=== PATIENT | female | born 1945 | race Caucasian/White ===

== ENCOUNTER → 2018-03-10 | Outpatient (CLI) | payer MEDICARE, OTHER ==
[~2018-03-10] MED LIST: ACET500T71 PO; ACYC-113 PO; ASCO500T8 PO; CHOL100012 PO; CHOL10002 PO; DOCU-180 PO; GARL1CAP3 PO; HYDR12.517 PO; IBUP-1623 PO; LISI-167 PO; MONT10TA6 PO; MULT-91 PO; MULT1TAB60 PO
[2018-03-10 10:50] LABS: BASOPHILS # (AUTO) 0.02 x10^3/uL (0-0.1); BASOPHILS % (AUTO) 0 % (0-1); EOSINOPHILS # (AUTO) 0.09 x10^3/uL (0-0.4); EOSINOPHILS % (AUTO) 2 % (1-7); LYMPHOCYTES # (AUTO) 1.25 x10^3/uL (1-3.4); LYMPHOCYTES % (AUTO) 21 % (22-44); MD NO; MEAN CORPUSCULAR HEMOGLOBIN 31.2 pg (27.0-34.8); MEAN CORPUSCULAR HGB CONC 33.8 g/dL (32.4-35.8); MEAN CORPUSCULAR VOLUME 92.4 fL (80-100); MEAN PLATELET VOLUME 8.2 fL (7.4-10.4); MONOCYTES % (AUTO) 9 % (2-9); NEUTROPHILS # (AUTO) 4.03 x10^3/uL (1.8-6.8); NEUTROPHILS % (AUTO) 69 % (42-75); PLATELET COUNT 257 x10^3/uL (130-400); RED BLOOD COUNT 4.33 x10^6/uL (3.82-5.3); RED CELL DISTRIBUTION WIDTH 14.1 % (9.6-15.2)
[2018-03-10 11:01] LABS: ALANINE AMINOTRANSFERASE 18 U/L (12-78); ALBUMIN 3.9 g/dL (3.4-5.0); ANION GAP 6 mmol/L (5-15); CALCIUM 9.4 mg/dL (8.5-10.1); CHLORIDE 107 mmol/L (98-107)
[2018-03-10 11:04] LABS: ALKALINE PHOSPHATASE 87 U/L (45-117); BILIRUBIN,TOTAL 0.5 mg/dL (0.2-1.0); CREATININE 0.91 mg/dL (0.55-1.02); TOTAL PROTEIN 7.2 g/dL (6.4-8.2)
== END | disposition home or self-care (01) ==
LOC: STAR 09:47
PROVIDERS: ATTEND Orthopaedic Surgery
DX: Z01.818 Encounter for other preprocedural examination (principal); M16.11 Unilateral primary osteoarthritis, right hip
CPT/HCPCS: 36415; 80053; 85025; 87081; 93005

== ENCOUNTER 2018-04-22 16:02 | Inpatient (IN) | payer MEDICARE, OTHER ==
[~2018-04-22] VITALS: Ht 162.6 cm; Wt 81.1 kg
[2018-04-22] MEDS ORDERED: IBUPROFEN 600 MG TABLET PO ONE (17:00)
[2018-04-22] MEDS ORDERED: ACETAMINOPHEN 650 MG SUPP PR ONE (17:00)
[2018-04-22] MEDS ORDERED: SODIUM CHLORIDE FLUSH 10ML SYR IVF ONE (17:00)
[2018-04-22] MEDS ORDERED: SODIUM CHLORIDE 0.9% 1,000ML IVBOLUS ONE (17:00)
--- NOTE | 2018-04-22 17:17 | NUR ---
ASSUMED CARE OF PT. PT TAKEN TO RESTROOM. WITH ASSITANCE PT GAVE URINE SAMPLE. URINE SAMPLE COLLECTED. PT STATES BURNING WITH URINATION SINCE SATURDAY WITH DYSURIA AND INCREASED FREQUENCY. URINE DARK AND CLOUDY. PT APPEARS TO BE VERY WEAK. PT FEBRILE, HOT, PALE, AND DRY. BREATHING REGULAR AND UNLABORED. MILD AMOUNT OF DISTRESS NOTED. POC DISCUSSED. LAB AT BEDSIDE. WILL CONTINUE TO MONTIOR.
[2018-04-22] MEDS ORDERED: ACETAMINOPHEN 325 MG TABLET ONE (17:21)
[2018-04-22] MEDS ORDERED: IBUPROFEN 600 MG TABLET ONE (17:22)
--- NOTE | 2018-04-22 17:27 | NUR ---
PT MEDICATED PER APR. RIGHTS VERIFIED PRIOR. 3P'S ADDRESSED.
[2018-04-22 17:28] LABS: CULTURE INDICATED? YES; MICROSCOPIC INDICATED
[2018-04-22] MEDS ORDERED: ACETAMINOPHEN 325 MG TABLET PO ONE (17:30)
[2018-04-22 17:39] LABS: BASOPHILS # (AUTO) 0.01 x10^3/uL (0-0.1); BASOPHILS % (AUTO) 0 % (0-1); EOSINOPHILS # (AUTO) 0.05 x10^3/uL (0-0.4); EOSINOPHILS % (AUTO) 0 % (1-7); LYMPHOCYTES # (AUTO) 0.64 x10^3/uL (1-3.4); LYMPHOCYTES % (AUTO) 5 % (22-44); MD NO; MEAN CORPUSCULAR HEMOGLOBIN 30.5 pg (27.0-34.8); MEAN CORPUSCULAR VOLUME 89.8 fL (80-100); MEAN PLATELET VOLUME 8.2 fL (7.4-10.4); MONOCYTES # (AUTO) 0.86 x10^3/uL (0.2-0.8); MONOCYTES % (AUTO) 7 % (2-9); NEUTROPHILS % (AUTO) 87 % (42-75); PLATELET COUNT 227 x10^3/uL (130-400); RED BLOOD COUNT 3.55 x10^6/uL (3.82-5.3); RED CELL DISTRIBUTION WIDTH 14.6 % (9.6-15.2)
[2018-04-22 17:46] LABS: ALANINE AMINOTRANSFERASE 13 U/L (12-78); ALBUMIN 3.4 g/dL (3.4-5.0); ANION GAP 7 mmol/L (5-15); CALCIUM 8.6 mg/dL (8.5-10.1); CHLORIDE 111 mmol/L (98-107); CREATININE 0.91 mg/dL (0.55-1.02)
[2018-04-22 17:48] LABS: ALKALINE PHOSPHATASE 99 U/L (45-117); BILIRUBIN,TOTAL 1.1 mg/dL (0.2-1.0); TOTAL PROTEIN 6.9 g/dL (6.4-8.2)
[2018-04-22] MEDS ORDERED: SODIUM CHLORIDE 0.9% 1,000ML IV ONE (18:00)
--- NOTE | 2018-04-22 18:05 | NUR ---
IV STARTED. IVF STARTED. WILL CONTINUE TO MONITOR.
[2018-04-22] MEDS ORDERED: CEFTRIAXONE PMX 1GM/50ML 50 ML IV ONE (18:30)
[2018-04-22] MEDS ORDERED: CEFTRIAXONE PMX 1GM/50ML 50 ML ONE (18:31)
--- NOTE | 2018-04-22 18:40 | NUR ---
2ND LITER OF NS STARTED. EKG COMPLETED AND GIVEN TO DR. BELTRAN.
--- NOTE | 2018-04-22 18:41 | NUR ---
IV ABX STARTED PER APR. 5 RIGHTS VERIFIED PRIOR. 3 P'S ADDRESSED. NO BC PER ERMD.
[2018-04-22] MEDS ORDERED: SODIUM CHLORIDE 0.9%, 500ML IVBOLUS ONE ×2 (19:00)
[2018-04-22] MEDS ORDERED: MORPHINE SULFATE 4 MG/ML, 1ML IVPush PRN (19:00)
--- NOTE | 2018-04-22 19:03 | NUR ---
REPORT TO ARTURO MULLINS.
--- NOTE | 2018-04-22 19:11 | NUR ---
PT ASSISTED TO REST ROOM AND BACK TO BED.
[2018-04-22 19:19] LABS: TROPONIN I < 0.015 ng/mL (0.000-0.045)
--- NOTE | 2018-04-22 20:38 | NUR ---
PT AGAIN ASSISTED TO RESTROOM AND BACK. ORDERED MEDS DISCUSSED, PT DECLINING MORPHINE AT THIS TIME.
[2018-04-22] MEDS ORDERED: ASPI-496 PO (20:45)
[2018-04-22] MEDS ORDERED: CYCLOBENZAPRINE 10 MG TABLET ONE (21:20)
[2018-04-22] MEDS ORDERED: CYCL-259 PO (21:22)
--- NOTE | 2018-04-22 21:22 | NUR ---
PT NOW STATES SHE NORMALLY TAKES FLEXERIL FOR HER MUSCLE PAIN. MD INFORMED. MED ORDERED. PT MEDICATED PER APR. POC DISCUSSED. PT DENIES FURTHER NEEDS AT THIS TIME.
[2018-04-22] MEDS ORDERED: CYCLOBENZAPRINE 10 MG TABLET PO ONE (21:30)
--- NOTE | 2018-04-22 22:19 | NUR ---
REPORT CALLED TO [facility]. ADMIT ROOM IS DIRTY BUT THEY WILL CALL BACK WHEN IT IS CLEAN.
[2018-04-23] MEDS ORDERED: LIDODERM 5% PATCH TD PRN (00:30)
[2018-04-23] MEDS ORDERED: DOCUSATE 100 MG CAPSULE PO PRN (00:30)
[2018-04-23] MEDS ORDERED: LABETALOL 5 MG/ML SYRINGE IVPush PRN (00:30)
[2018-04-23] MEDS ORDERED: ONDANSETRON ODT 4 MG PO PRN (00:30)
[2018-04-23] MEDS ORDERED: DIPHENHYDRAMINE 25 MG CAPSULE PO PRN (00:30)
[2018-04-23] MEDS: SODIUM CHLORIDE 0.9% 1,000 ML IV SCH ×2 (00:49→13:50)
[2018-04-23] MEDS: DIAZEPAM 2 MG TABLET PO PRN ×3 (00:50→16:36)
[2018-04-23] MEDS: ACETAMINOPHEN 325 MG TABLET PO PRN ×3 (03:13→16:36)
[2018-04-23 03:37] VITALS: BP 117/71
[2018-04-23] MEDS: CEFTRIAXONE PMX 1GM/50ML 50 ML IV SCH ×2 (06:34→18:17)
[2018-04-23] MEDS: ASPIRIN 81 MG TABLET EC PO SCH (07:55)
[2018-04-23] MEDS: ENOXAPARIN 40 MG/0.4 ML SQ SCH ×2 (07:55→08:01)
[2018-04-23] MEDS: DOCUSATE 100 MG CAPSULE PO PRN ×2 (08:01→20:50)
[2018-04-23 08:03] VITALS: BP 127/72
[2018-04-23 20:00] VITALS: BP 148/72
[2018-04-23] MEDS: CHOLECALCIFEROL 1,000 UNIT TABLET PO SCH (20:49)
[2018-04-23] MEDS: LISINOPRIL 10 MG TABLET PO SCH (20:50)
[2018-04-23] MEDS ORDERED: TEMPLATE NON-FORMULARY MED. (Garlic** 1,000 MG) PO SCH (21:00)
[2018-04-24 01:21] VITALS: BP 150/78
[2018-04-24] MEDS: ACETAMINOPHEN 325 MG TABLET PO PRN (02:43)
[2018-04-24] MEDS: SODIUM CHLORIDE 0.9% 1,000 ML IV SCH ×2 (02:56→16:19)
[2018-04-24 05:45] LABS: BASOPHILS # (AUTO) 0.01 x10^3/uL (0-0.1); BASOPHILS % (AUTO) 0 % (0-1); EOSINOPHILS # (AUTO) 0.14 x10^3/uL (0-0.4); EOSINOPHILS % (AUTO) 1 % (1-7); LYMPHOCYTES # (AUTO) 0.94 x10^3/uL (1-3.4); LYMPHOCYTES % (AUTO) 8 % (22-44); MD NO; MEAN CORPUSCULAR HEMOGLOBIN 30.7 pg (27.0-34.8); MEAN CORPUSCULAR HGB CONC 34.3 g/dL (32.4-35.8); MEAN CORPUSCULAR VOLUME 89.4 fL (80-100); MEAN PLATELET VOLUME 8.7 fL (7.4-10.4); MONOCYTES % (AUTO) 11 % (2-9); NEUTROPHILS # (AUTO) 9.02 x10^3/uL (1.8-6.8); NEUTROPHILS % (AUTO) 79 % (42-75); PLATELET COUNT 180 x10^3/uL (130-400); RED BLOOD COUNT 3.09 x10^6/uL (3.82-5.3); RED CELL DISTRIBUTION WIDTH 13.9 % (9.6-15.2)
[2018-04-24 05:49] LABS: ANION GAP 7 mmol/L (5-15); CALCIUM 8.2 mg/dL (8.5-10.1); CHLORIDE 115 mmol/L (98-107)
[2018-04-24] MEDS: CEFTRIAXONE PMX 1GM/50ML 50 ML IV SCH ×2 (05:50→19:35)
[2018-04-24 07:53] VITALS: BP 147/76
[2018-04-24] MEDS: ENOXAPARIN 40 MG/0.4 ML SQ SCH (07:55)
[2018-04-24] MEDS ORDERED: DIAZEPAM 5 MG TABLET ONE (07:57)
[2018-04-24] MEDS: ASPIRIN 81 MG TABLET EC PO SCH (07:59)
[2018-04-24] MEDS: DOCUSATE 100 MG CAPSULE PO PRN ×2 (08:02→21:00)
[2018-04-24 13:05] VITALS: BP 155/76
[2018-04-24] MEDS: CHOLECALCIFEROL 1,000 UNIT TABLET PO SCH (21:00)
[2018-04-24] MEDS: LISINOPRIL 10 MG TABLET PO SCH (21:00)
[2018-04-25 03:47] VITALS: BP 179/81
[2018-04-25] MEDS: SODIUM CHLORIDE 0.9% 1,000 ML IV SCH (04:48)
[2018-04-25 05:21] LABS: BASOPHILS # (AUTO) 0.02 x10^3/uL (0-0.1); BASOPHILS % (AUTO) 0 % (0-1); EOSINOPHILS # (AUTO) 0.14 x10^3/uL (0-0.4); EOSINOPHILS % (AUTO) 2 % (1-7); LYMPHOCYTES # (AUTO) 0.81 x10^3/uL (1-3.4); LYMPHOCYTES % (AUTO) 9 % (22-44); MD NO; MEAN CORPUSCULAR HEMOGLOBIN 30.8 pg (27.0-34.8); MEAN CORPUSCULAR HGB CONC 34.5 g/dL (32.4-35.8); MEAN CORPUSCULAR VOLUME 89.2 fL (80-100); MEAN PLATELET VOLUME 8.5 fL (7.4-10.4); MONOCYTES # (AUTO) 1.08 x10^3/uL (0.2-0.8); MONOCYTES % (AUTO) 12 % (2-9); NEUTROPHILS # (AUTO) 7.41 x10^3/uL (1.8-6.8); NEUTROPHILS % (AUTO) 78 % (42-75); PLATELET COUNT 182 x10^3/uL (130-400); RED BLOOD COUNT 3.21 x10^6/uL (3.82-5.3); RED CELL DISTRIBUTION WIDTH 14.4 % (9.6-15.2)
[2018-04-25 05:27] LABS: ANION GAP 7 mmol/L (5-15); CHLORIDE 114 mmol/L (98-107)
[2018-04-25 07:00] VITALS: BP 148/77
[2018-04-25] MEDS: ASPIRIN 81 MG TABLET EC PO SCH (07:56)
[2018-04-25] MEDS: DOCUSATE 100 MG CAPSULE PO PRN (07:56)
[2018-04-25] MEDS: CEFTRIAXONE PMX 1GM/50ML 50 ML IV SCH ×2 (07:56→19:37)
[2018-04-25] MEDS: ENOXAPARIN 40 MG/0.4 ML SQ SCH (08:31)
[2018-04-25] MEDS ORDERED: POTASSIUM CHLORIDE 20 MEQ TAB.ER.PRT PO ONE (13:30)
[2018-04-25 15:15] VITALS: BP 96/56
[2018-04-25 19:30] VITALS: BP 160/81
[2018-04-25] MEDS: CHOLECALCIFEROL 1,000 UNIT TABLET PO SCH (20:36)
[2018-04-25] MEDS: LISINOPRIL 10 MG TABLET PO SCH (20:36)
[2018-04-25 20:47] VITALS: BP 156/80
[2018-04-26 04:12] VITALS: BP 138/82
[2018-04-26 04:23] LABS: BASOPHILS # (AUTO) 0.01 x10^3/uL (0-0.1); BASOPHILS % (AUTO) 0 % (0-1); EOSINOPHILS # (AUTO) 0.25 x10^3/uL (0-0.4); EOSINOPHILS % (AUTO) 3 % (1-7); LYMPHOCYTES # (AUTO) 0.98 x10^3/uL (1-3.4); LYMPHOCYTES % (AUTO) 11 % (22-44); MD NO; MEAN CORPUSCULAR HEMOGLOBIN 29.4 pg (27.0-34.8); MEAN CORPUSCULAR VOLUME 89.3 fL (80-100); MEAN PLATELET VOLUME 8.4 fL (7.4-10.4); MONOCYTES # (AUTO) 0.98 x10^3/uL (0.2-0.8); MONOCYTES % (AUTO) 11 % (2-9); NEUTROPHILS # (AUTO) 6.76 x10^3/uL (1.8-6.8); NEUTROPHILS % (AUTO) 75 % (42-75); PLATELET COUNT 233 x10^3/uL (130-400); RED BLOOD COUNT 3.27 x10^6/uL (3.82-5.3)
[2018-04-26 04:31] LABS: ANION GAP 6 mmol/L (5-15); CALCIUM 7.9 mg/dL (8.5-10.1); CHLORIDE 114 mmol/L (98-107)
[2018-04-26 04:33] LABS: CREATININE 0.86 mg/dL (0.55-1.02)
[2018-04-26 08:00] VITALS: BP 150/83
[2018-04-26] MEDS: CEFTRIAXONE PMX 1GM/50ML 50 ML IV SCH (08:57)
[2018-04-26] MEDS: ASPIRIN 81 MG TABLET EC PO SCH (08:58)
[2018-04-26] MEDS: ENOXAPARIN 40 MG/0.4 ML SQ SCH (09:00)
[2018-04-26] MEDS ORDERED: CEFD300C37 PO (13:34)
[2018-04-26 13:56] VITALS: BP 156/73
== END 2018-04-26 15:53 | disposition home or self-care (01) | DRG 872 ==
LOC: ED 20:50 → EDIP 21:08 → 4WST 23:56
PROVIDERS: ADMIT Hospitalist; ATTEND Hospitalist
DX: A41.51 Sepsis due to Escherichia coli [E. coli] (principal); N13.6 Pyonephrosis; I31.3 Pericardial effusion (noninflammatory); M19.90 Unspecified osteoarthritis, unspecified site; R31.9 Hematuria, unspecified; Z96.643 Presence of artificial hip joint, bilateral; I10 Essential (primary) hypertension; Z90.710 Acquired absence of both cervix and uterus
CPT/HCPCS: 36415; 71045; 74176; 80048; 80053; 81001; 83605; 84484; 85025; 87040; 87077; 87086; 87186; 93005; 96365; G0378; J0696; J1650; J7030